=== PATIENT | female | born 1970 | race Caucasian/White ===

== ENCOUNTER → 2017-09-23 11:26 | Outpatient (CLI) | payer OTHER, SELFPAY ==
--- NOTE | 2017-09-23 11:31 | RAD_ITS ---
STUDY: X-RAY CHEST REASON FOR EXAM: Female, 47 years old. Hemoptysis TECHNIQUE: Frontal and lateral views of the chest were obtained. COMPARISON: None. FINDINGS: The lungs are adequately aerated. There are no focal airspace opacities. There is no demonstrated pleural abnormality. The cardiac silhouette is normal in size. The mediastinum and hilar regions are unremarkable. Normal visualized pulmonary arteries. Normal visualized aortic arch and descending thoracic aorta. The thoracic spine is unremarkable. The visualized ribs, clavicles, and shoulders are unremarkable. There is no demonstrated abnormality of the visualized upper abdomen. RAD/Chest PA and Lateral IMPRESSION: There is no evidence of focal consolidation or pleural effusion. There are no acute cardiopulmonary abnormalities. Electronically Signed: Marianela Valencia MD at 11:14 EDT Tel Direct: [phone], Service support ,
== END ==
PROVIDERS: Family Provider Family Medicine; PCP Family Medicine; Visit Provider Family Medicine
DX: Z00.00 Encounter for general adult medical examination without abnormal findings (principal); R04.2 Hemoptysis
CPT/HCPCS: 71046

== ENCOUNTER → 2017-10-08 09:00 | Outpatient (CLI) | payer OTHER, SELFPAY ==
[2017-10-12 13:40] LABS: Free T3 3.4 pg/mL (2.18-3.98)
== END ==
PROVIDERS: Visit Provider Internal Medicine Endocrinology, Diabetes & Metabolism
DX: E03.9 Hypothyroidism, unspecified (principal); E55.9 Vitamin D deficiency, unspecified
CPT/HCPCS: 84481

== ENCOUNTER → 2017-11-04 07:47 | Outpatient (CLI) | payer OTHER, SELFPAY ==
--- NOTE | 2017-11-04 07:49 | BI_ITS ---
MAMMOGRAPHY - BILATERAL SCREENING REASON FOR EXAM: Female, 47 years old. Routine annual screening examination. PERTINENT HISTORY: Mother with breast cancer. TECHNIQUE: Digital bilateral breast jami (3D mammographic acquisition) in the CC and MLO projections. 2-D mediolateral oblique (MLO) and craniocaudad (CC) views of both breasts were obtained. CAD: Full Field Digital Mammography with Computer Added Detection was performed. COMPARISON: Comparison is made with prior study dated August 13, 2016. FINDINGS: Breast Composition: The breasts are heterogeneously dense, which may obscure small masses. There are no dominant masses or suspicious calcifications. No other significant abnormalities are identified. There has been no significant change since the prior study. BI/SCREENING MAMM (CAD), BILAT IMPRESSION: Stable bilateral screening mammogram. Yearly follow-up mammogram recommended. (A) ASSESSMENT CATEGORY: BIRADS Category 1: Negative. A letter regarding these results will be sent to the patient by the facility within 30 days. Approximately 10% of breast cancers are not detected by mammography. A normal mammogram should not delay biopsy of a clinically suspicious abnormality. [id number] Electronically Signed: Kingsley Brown MD at 10:54 EDT Tel [phone], Service support ,
== END ==
PROVIDERS: Family Provider Family Medicine; PCP Family Medicine; Visit Provider Family Medicine
DX: Z12.31 Encounter for screening mammogram for malignant neoplasm of breast (principal)
CPT/HCPCS: 77063; 77067

== ENCOUNTER 2017-11-23 07:43 | Day surgery (SDC) | payer OTHER, SELFPAY ==
[2017-11-23] VITALS (7 sets, daily range): BP systolic 82–126; BP diastolic 46–75; PULSE 48–74; RESP 16–18; TEMP 36.2–36.9; O2SAT 96–100; BMI 26.7
--- NOTE | 2017-11-23 | IMM_PTH ---
PATIENT: RADHA NOLAN LOC: EN U#:[id number] AGE/SX: 47/F ROOM: RE11/23/[address]: Dr. Chiquita Quevedo MD : 1970 BED: DIS: 11/23/2017 SPEC #: [id number] RECD: 11/24/17 12:14 STATUS: EBEN REQ #: [id number] MUNDO: 11/23/17 00:[address]: Chiquita Quevedo DEPT: IMMUNOHISTOCHEMISTRY RECD BY: Danette Coleman ENTERED: 11/24/17 12:15 SP TYPE: IMMUNO OTHR DR: Dr. Toni Delacruz MD Tissues: A - Stomach, NOS Procedures: H Pylori (initial) PHYSICIAN & INSTITUTION [place] [id number] SPECIMEN INFORMATION: Tissue Source: A ? Gastric antrum biopsy Clinical Info: Chronic mouth sores; constipation Specimen Number: [id number] CPT code: 28691 METHODOLOGY: Deparaffinized sections of prefer/formalin-fixed tissue or PAP/DQ stained slides are incubated with monoclonal/polyclonal antibodies/oligonucleotide probes. Localization is made via biotin free immunoperoxidase method. Appropriate controls are performed and reacted as expected. Results on target cell population are indicated in the following table: RESULTS: ANTIBODY / CLONE RESULT Block A H Pylori (polyclonal) negative These tests were developed and their performance characteristics determined by [facility]. They may not have been cleared or approved by the U.S. Food and Drug Administration. The FDA has determined that such clearance or approval is not necessary. INTERPRETATION: A. Gastric antrum, biopsy: Negative for Helicobacter pylori organisms. SJ:carmina 11/24/17
[2017-11-23 08:14] LABS: Internal QC Validated? YES +Cl - CLEAR BKGD; Pregnancy, Urine Negative Negative
--- NOTE | 2017-11-23 08:43 | EGD_PTH ---
PATIENT: RADHA NOLAN LOC: EN U#:[id number] AGE/SX: 47/F ROOM: RE11/23/[address]: Dr. Chiquita Quevedo MD : 1970 BED: DIS: 11/23/2017 SPEC #: [id number] RECD: 11/23/17 11:05 STATUS: EBEN KALEB #: [id number] MUNDO: 11/23/17 08:[address]: Chiquita Quevedo DEPT: SURGICAL PATHOLOGY RECD BY: Pollo Vickers ENTERED: 11/23/17 11:41 SP TYPE: EGD BIOPSY OTHR DR: Dr. Toni Delacruz MD Tissues: A - Gastric mucous membrane B - Gastric fundus C - Gastric mucous membrane D - Esophageal mucous membrane E - Sigmoid colon biopsy Procedures: Special Stain Group II Special Stain Group I Surgery Specimen Level IV GMS Stain (control) Alcian Blue/PAS (control) HEADER OPERATION: EGD with biopsy; colonoscopy with polypectomy PRE-OP DIAGNOSIS: Chronic mouth sores; constipation TISSUE SUBMITTED: A ? Biopsy gastric antrum, B ? Biopsy fundic polyp, C ? Biopsy GE junction, D ? Biopsy mid esophagus, E ? Polyp 25 cm distal sigmoid MICROSCOPIC DIAGNOSIS A. Gastric antrum, biopsy: Mild gastritis. Focal intestinal metaplasia. See microscopic description and comment. B. Fundic polyp, biopsy: Fundic gland polyp. C. GE junction, biopsy: Fragment of gastroesophageal mucosa with chronic inflammation. Intestinal metaplasia (goblet cell metaplasia) is not identified. See comment. D. Mid esophagus, biopsy: Fragment of squamous mucosa with focal ulceration and associated acute and chronic inflammation. A minute lymphoid aggregate, favor benign. Special stain for fungi is negative for organisms; matched control is appropriate. E. Polyp at 25 cm, distal sigmoid, polypectomy: Tubulovillous adenoma with focal high-grade dysplasia, completely excised. See comment. SJ:rg 11/24/17 COMMENT A. The results of immunohistochemistry for Helicobacter pylori will be reported separately ([id number]). A & C. Alcian blue/PAS stain with matched control is used in the evaluation of the specimen. E. High grade dysplasia is noted at the luminal surface of the polyp. The pedicle is free of adenomatous changes. MICROSCOPIC DESCRIPTION Slides are reviewed. A. The specimen shows fragments of gastric mucosa with chronic inflammatory cell infiltrates in the lamina propria consisting of lymphocytes and plasma cells, consistent with mild chronic gastritis. Focal intestinal metaplasia is also noted. GROSS DESCRIPTION A - Received in fixative is one container labeled with the patient's name and designated gastric antrum. The specimen consists of one irregular fragment of light machuca soft tissue that measures 0.3 x 0.2 x 0.1 cm. The specimen is totally submitted in one cassette. B - Received in fixative is one container labeled with the patient's name and designated fundic polyp. The specimen consists of one irregular fragment of light machuca soft tissue that measures 0.3 x 0.2 x 0.1 cm. The specimen is totally submitted in one cassette. C - Received in fixative is one container labeled with the patient's name and designated GE junction. The specimen consists of one irregular fragment of light machuca soft tissue that measures 0.3 x 0.3 x 0.1 cm. The specimen is totally submitted in one cassette. D - Received in fixative is one container labeled with the patient's name and designated mid esophagus. The specimen consists of one irregular fragment of light machuca soft tissue that measures 0.8 x 0.3 x 0.1 cm. The specimen is totally submitted in one cassette. E - Received in fixative is one container labeled with the patient's name and designated polyp at 25 cm distal sigmoid. The specimen consists of a pedunculated polyp measuring 1 x 0.5 x 0.5 cm. The pedicle measures 0.6 cm in length and 0.6 cm in diameter. The base of the polyp is inked black. The polyp is bisected and submitted entirely in one cassette. / SJ:rg 11/23/17 TC:1 CPT: 88906 x5, 93383 x2, 22591
--- NOTE | 2017-11-23 09:55 | PCM.OPRPT ---
Report of Operation Date of Procedure: 11/23/17 Pre-Operative Diagnosis: Chronic mouth sores, constipation Post-Operative Diagnosis: Small esophageal ulcer, GERD/mild reflux, gastric fundic polyps, distal sigmoid polyp at 25 cm Surgery/Procedure Performed:: EGD with biopsy, colonoscopy with snare polypectomy, injection of Nazia ink Type of Anesthesia:: MAC Anesthesiologist: Oscar Malhotra Specimen's removed: 1. Antral biopsy, 2. Fundic polyp, 3. GE junction, 4. Middle esophagus ulcer, 5. Distal sigmoid polyp at 25 cm Estimated Blood Loss (mL): Minimal Description of Procedure: Procedure: EGD with biopsy After obtaining informed consent, the endoscope was passed under direct visualization. Throughout the procedure, patient's blood pressure, pulse, oxygen saturations were monitored continuously by anesthesia. The endoscope was introduced through the mouth and advanced to the 2nd part of the duodenum. The upper GI endoscopy was accomplished without difficulty. Patient tolerated procedure well. Findings: Mild erythematous mucosa found gastric antrum, fundic gland polyps, mild mucosal change at the GE junction-these were all biopsied with cold forceps biopsies. In the middle esophagus there was a small ulcer which was also biopsied with the cold forceps biopsy The duodenum was normal. Impression: 1. GERD/mild gastritis, fundic polyps. Biopsied 2. Small middle esophagus ulcer. Biopsied. 3. Normal examined duodenum Recommendations: Await biopsies Omeprazole 40 mg p.o. daily take 1 hour after taking levothyroxine or take at bedtime. Procedure: Colonoscopy with snare polypectomy After reviewing the risks benefits, the patient was deemed in satisfactory condition to undergo procedure. After obtaining informed consent, the scope was passed under direct visualization. Throughout the procedure, the patient's blood pressure pulse and position saturations were monitored continuously anesthesia. The colonoscope was introduced through the anus and advanced to the cecum, identified by the appendiceal orifice, IC valve and transillumination. The colonoscopy was performed without difficulty. The patient tolerated procedure well. Quality of bowel prep was good. Findings: The perianal and digital rectal exam were normal. There is medium size polyp on a long stalk at about 25 cm in the distal sigmoid this was removed with hot snare. The polyp measured about 1 cm in length including the stalk and 6 mm in width. The area was marked in 3 locations with Nazia ink. Otherwise the colon (entire examined portion) appeared normal. Retroflexed view of the distal rectum and anal verge was normal and showed no anal or rectal abnormalities Impression: 1. Distal sigmoid polyp removed with snare polypectomy 2. The distal rectal and anal verge were normal on retroflexed view. Recommendations: Await biopsy results Repeat colonoscopy in 1-3 years for screening purposes depending on biopsy results - Complications none
== END 2017-11-23 10:47 | disposition home or self-care (01) ==
LOC: EN 07:44 → AC 07:45
PROVIDERS: Anesthesiology; Family Provider Family Medicine; PCP Family Medicine; Visit Provider Surgery
PROC: 0DJD8ZZ Inspection of Lower Intestinal Tract, Via Natural or Artificial Opening Endoscopic (ICD-10-PCS; CPT 45378; principal; 2017-11-23 08:55)
DX: K22.10 Ulcer of esophagus without bleeding (principal); K21.9 Gastro-esophageal reflux disease without esophagitis; K29.50 Unspecified chronic gastritis without bleeding; K44.9 Diaphragmatic hernia without obstruction or gangrene; D12.5 Benign neoplasm of sigmoid colon; K62.5 Hemorrhage of anus and rectum; K13.79 Other lesions of oral mucosa; K59.00 Constipation, unspecified; I10 Essential (primary) hypertension; E03.9 Hypothyroidism, unspecified; Z79.899 Other long term (current) drug therapy
CPT/HCPCS: 43239; 45381; 45385; 81025; 88305; 88312; 88313; 88342; J7120; A4216; A4648

== ENCOUNTER → 2018-12-16 07:15 | Outpatient (CLI) | payer OTHER, SELFPAY ==
--- NOTE | 2018-12-16 07:19 | BI_ITS ---
MAMMOGRAPHY - BILATERAL SCREENING REASON FOR EXAM: Female, 48 years old. Routine annual screening examination. PERTINENT HISTORY: Mother with breast cancer. Comparison is made with prior study dated November 04, 2017 and August 13, 2016. TECHNIQUE: Digital bilateral breast lizbeth (3D mammographic acquisition) in the CC and MLO projections. 2-D mediolateral oblique (MLO) and craniocaudad (CC) views of both breasts were obtained. CAD: Full Field Digital Mammography with Computer Added Detection was performed. COMPARISON: Comparison is made with prior study dated November 04, 2017 and August 13, 2016. FINDINGS: Breast Composition: The breasts are heterogeneously dense, which may obscure small masses. Focal area of architectural distortion seen in the axillary aspect of the left breast on the mediolateral oblique view. This is not clearly seen on the craniocaudad view. The patient will be recalled for additional views including 90 degree lateral and compression spot views. Stable small bilateral axillary lymph nodes. No other significant abnormalities are identified. BI/SCREEN MAMM (CAD) W/LIZBETH BILAT IMPRESSION: Focal area of architectural distortion in the left breast as described. The patient will be recalled for additional views of the left breast. Recall Side: Left Breast ASSESSMENT CATEGORY: BIRADS Category 0: Incomplete. Need additional imaging evaluation. A letter regarding these results will be sent to the patient by the facility within 30 days. Approximately 10% of breast cancers are not detected by mammography. A normal mammogram should not delay biopsy of a clinically suspicious abnormality. [id number] Electronically Signed: iKngsley Brown, at 9:04 EDT , Service support ,
== END ==
PROVIDERS: Family Provider Family Medicine; PCP Family Medicine; Referring Provider Family Medicine; Visit Provider Family Medicine
DX: Z00.00 Encounter for general adult medical examination without abnormal findings (principal); Z12.31 Encounter for screening mammogram for malignant neoplasm of breast
CPT/HCPCS: 77063; 77067

== ENCOUNTER → 2018-12-21 | Outpatient (CLI) | payer OTHER, SELFPAY ==
--- NOTE | 2018-12-21 14:18 | BI_ITS ---
MAMMOGRAPHY - UNILATERAL DIAGNOSTIC: LEFT BREAST REASON FOR EXAM: Female, 48 years old. Abnormal screening mammogram with a focal area of architectural distortion in the axillary aspect of the left breast. PERTINENT HISTORY: Mother with breast cancer. TECHNIQUE: 90 degree lateral as well as compression spot views of the left breast were obtained. CAD: Full Field Digital Mammography with Computer Added Detection was performed. COMPARISON: Comparison is made with prior examination dated December 16, 2018 and November 04, 2017. FINDINGS: Breast Composition: The breasts are heterogeneously dense, which may obscure small masses. The focal area of architectural distortion deep in the axillary region of the breast persists. Correlation with ultrasound is recommended. No other significant abnormalities are identified. BI/DIAG MAMM W/CAD, UNILAT IMPRESSION: Persistent architectural distortion in the axillary region of the left breast as described. Comparison with ultrasound is recommended. ASSESSMENT CATEGORY: BIRADS Category 0: Incomplete. Need additional imaging evaluation. A letter regarding these results will be sent to the patient by the facility within 30 days. Approximately 10% of breast cancers are not detected by mammography. A normal mammogram should not delay biopsy of a clinically suspicious abnormality. Electronically Signed: Kingsley Brown, at 8:16 EDT , Service support ,
--- NOTE | 2018-12-21 14:57 | US_ITS ---
STUDY: ULTRASOUND BREAST - LEFT REASON FOR EXAM: Female, 48 years old. Architectural distortion in the axillary region of the breast. TECHNIQUE: Axial and longitudinal images of the LEFT breast were performed with a high resolution ultrasound transducer. COMPARISON: Comparison is made with prior mammogram done earlier today as well as December 16, 2018. FINDINGS: LEFT Breast: The mammographic abnormality corresponds to a 1.6 cm x 0.9 cm x 0.6 cm lymph node. There is also evidence of dilated ducts at the 2:00 position the breast at 5 cm from the nipple. Routine mammographic follow-up is recommended. US/Breast Limited Unilateral IMPRESSION: 1.6 cm x 0.6 cm x 0.9 cm lymph node. Routine mammographic follow-up is recommended. ASSESSMENT CATEGORY: BIRADS Category 2: Benign. A letter regarding these results will be sent to the patient by the facility within 30 days. Electronically Signed: Kingsley Brown, at 8:18 EDT , Service support ,
== END | disposition home or self-care (01) ==
LOC: OPBI 14:16
PROVIDERS: Family Provider Family Medicine; PCP Family Medicine; Referring Provider Family Medicine; Visit Provider Family Medicine
DX: R92.8 Other abnormal and inconclusive findings on diagnostic imaging of breast (principal)
CPT/HCPCS: 76642; 77065

== ENCOUNTER 2019-03-28 10:05 | Day surgery (SDC) | payer OTHER, SELFPAY ==
[2019-03-28] VITALS (7 sets, daily range): BP systolic 93–129; BP diastolic 52–89; PULSE 62–73; RESP 16–18; TEMP 36.3–36.7; O2SAT 98–100; BMI 27.3
[2019-03-28 10:22] LABS: Internal QC Validated? YES +Cl - CLEAR BKGD; Pregnancy, Urine Negative Negative
[2019-03-28] MEDS: Lactated Ringers 1,000 ML 100 ML IV (10:36)
--- NOTE | 2019-03-28 10:45 | H&P.OPEN ---
History of Present Illness Date of Admission: 03/28/19 The patient is a 48 year old F presented for screening colonoscopy due to history of tubular adenoma with high-grade dysplasia at the tip completely excised last year in 2018 in the sigmoid colon. Patient states she has bowel movements most daily or at least every other day, denies any abdominal pain or reflux symptoms. She does still get occasional mouth sores unsure of the source she is questioning whether it may be due to something that she eats. Past Medical/Surgical History - Planned Operation Planned Operative Procedure/s: colonoscopy Date of Operative Procedure: 03/28/19 Permit Signed: No S.O.S: No Is This Patient Having a Total Joint: No - Previous Hospitalizations/Surgeries HX Hospitalizations: No HX of Surgeries: egd,colonoscopy Any Problems With Anesthesia: No You/Your Family Experience Fever (Hyperthermia) With Anes: No Cholinesterase deficiency: No - Cardiovascular Hx Chest Pain within Last 2 months: No Hx of Irregular Heartbeat and/or Afib: No Hx Heart Attack: No Hx Congestive Heart Failure: No Hx Rheumatic Fever: No Hx Hypertension: Yes - no longer on medication Hx Internal Defibrillator: No Hx Pacemaker: No Hx Cardiac Catheterization: No Hx Cardiac Surgery/Stents/Etc.: No Hx Stress Test: No HX Edema: No Hx Pain in Legs when Walking/Leg Cramps: No - Respiratory Chronic Cough: No HX of Shortness of Breath: No Hoarseness: No Hx Chronic Obstructive Pulmonary Disease (COPD): No Hx Asthma: No Hx Emphysema: No Hx Sleep Apnea: No Hx Oxygen Use at Home: No Hx Respiratory Tract Infection/Cold (presently): No Do You Snore Loudly (louder than talking or can be heard): No Do You Often Feel Tired/ Fatigued/ Sleepy Dring Daytime?: No Has Anyone Observed You Stop Breathing During Sleep?: No Result (for STOP score): Negative Hx Smoking: No Smoking Status: Never smoker - Gastrointestinal Hx Gastroesophageal Reflux: Yes Controlled With Meds: No - no longer take medication Hx Gastrointestinal Disorders: No Hx Gastrointestinal Bleed: No Hx Ulcer: No Hx Hiatal Hernia: No Difficulty Chewing/Swallowing: No Recent Onset of Swallowing Problems: No Special diet followed at home: No Hx Unplanned Weight Loss of 20#: No HX Unplanned Weight Gain of 20#: No - Neurological Hx Seizures: No HX Syncope/Blackout Spells/Unconsciousness: No Hx CVA/Stroke: No Hx Transient Ischemic Attacks (TIA): No Hx Multiple Sclerosis: No Hx Parkinson's Disease: No Hx Head/Neck Injury: No Hx Headaches: No Hx Back Injury/Pain: No Recent Onset of Speech Difficulty: No Restless Legs: No Does patient have nerve stimulator: No - Blood Disorder Hx Leukemia: No Bleeding Tendencies: No Hx Deep Vein Thrombosis: No Hx High Cholesterol: No Blood Transmitted Disease: No Hx Hepatitis: No Hx Cirrhosis: No Hx Anemia: No Hx Blood Disorders: No - Reproduction : No Is Patient Lactating: No Hx Hysterectomy: No Hx Tubal Ligation: No Are You Post Menopause: No - Genitourinary Hx Renal Disease: No - Musculoskeletal Hx Arthritis: No Hx Rheumatoid Arthritis: No Hx Gout: No Recent Onset of an Orthopedic Problem: No - Endocrine Hx Diabetes: No Thyroid Disease: Yes - on medication Hx Steroid Therapy: No - Psycho/Social Hx Substance Use: No Hx Alcohol Use: No Hx Anxiety: No Hx Depression: No Mental Illness: No Hx Dementia: No - Miscellaneous Hx Cancer: No Recent Exposure to Contagious Disease: No Active MRSA: No Hx of C-Diff: No Any Loose Teeth: No Allergies No Known Allergies Allergy (Verified 03/28/19 10:23) - Discharge Is Pt Admitted From a Long Term, or a Skilled Nursing: No Who Could Help: family After D/C, Where Do you Plan to Go: Return Home - Physical Exam General: Alert, Oriented x3, Cooperative, No apparent distress HEENT: Atraumatic Lungs: Normal air movement Cardiovascular: Regular rate Abdomen: Soft, Non Tender, Non-Distended Extremities: No clubbing, No cyanosis, No edema Vital Signs Temp Pulse Resp BP Pulse Ox 98.1 F 64 16 129/89 H 98 03/28/19 10:24 03/28/19 10:24 03/28/19 10:24 03/28/19 10:24 03/28/19 10:24 Oxygen Delivery Method Room Air Weight: 185 lb 6.54 oz Body Mass Index (BMI) 27.3 Laboratory Tests Past 24 Hrs 03/28/19 10:18 Urine Test Negative Assessment/Plan 48-year-old female history of tubulovillous adenoma with high-grade dysplasia completely excised, high-grade dysplasia only at the tip of the polyp with a long stalk in the sigmoid colon Surgery Risks - Colonoscopy I discussed with the patient the risks of the procedure: Yes Risks Include but are not Limited To: Risks include but are not limited to: Bleeding, perforation requiring further surgery, inability to complete colonoscopy requiring barium enema. Patient no further questions this time.
--- NOTE | 2019-03-28 11:34 | OP.ENDO_ITS ---
03/28/2019 Rodrick Delacruz [address] [place] [address] Re : Colonoscopy procedure for Mame Latham Dear Dr. Delacruz This procedure was performed on Thursday, March 28, 2019. My impressions and recommendations are as follows: Impressions : - Hemorrhoids found on perianal exam. - The entire examined colon is normal on direct and retroflexion views. - No specimens collected. - Sigmoid 25cm, area of previous TVA with high grade dysplasia at the tip, no polyps or mass appreciated, visualized previous tattoo. Recommendations : - Discharge patient to home. - Resume regular diet. - Continue present medications. - Repeat colonoscopy in 3 years for surveillance. My findings are described in the full procedure note, which is enclosed. If I can be of further assistance, please feel free to contact me at Doctor phone number(s): , Work: . Sincerely, MD Chiquita Wang MD 03/28/2019 11:33:53 AM This report has been signed electronically.
== END 2019-03-28 12:31 | disposition home or self-care (01) ==
LOC: EN 10:06 → AC 10:07
PROVIDERS: Anesthesiology; Family Provider Family Medicine; PCP Family Medicine; Referring Provider Family Medicine; Visit Provider Surgery
PROC: 0DJD8ZZ Inspection of Lower Intestinal Tract, Via Natural or Artificial Opening Endoscopic (ICD-10-PCS; CPT 45378; principal; 2019-03-28 11:10)
DX: Z12.11 Encounter for screening for malignant neoplasm of colon (principal); K64.9 Unspecified hemorrhoids; Z86.010 Personal history of colon polyps; E06.9 Thyroiditis, unspecified
CPT/HCPCS: 45378; 81025; J7120; J2405

== ENCOUNTER → 2019-09-26 | Outpatient (CLI) | payer OTHER, SELFPAY ==
[2019-03-28 10:24] VITALS: BMI 27.3
[2019-09-28 14:42] LABS: HPV Reflexed? NOT INDICATED
== END | disposition home or self-care (01) ==
PROVIDERS: PCP Family Medicine; Referring Provider Family Medicine; Visit Provider Family Medicine
DX: Z01.419 Encounter for gynecological examination (general) (routine) without abnormal findings (principal)
CPT/HCPCS: 88175; G0145

== ENCOUNTER → 2019-12-27 07:13 | Outpatient (CLI) | payer OTHER, SELFPAY ==
[2019-03-28 10:24] VITALS: BMI 27.3
--- NOTE | 2019-12-27 07:15 | BI_ITS ---
MAMMOGRAPHY - BILATERAL SCREENING 3-D TOMOSYNTHESIS REASON FOR EXAM: Female, 49 years old. Routine screening PERTINENT HISTORY: BILAT SCREENING - FAM HX OF MOTHER @ AGE LATE 60''S - NO PREV GORAN G''S - LT U/S DONE 12/21/18 = LYMPH NODE. TECHNIQUE: 2-D mammograms and 3-D Tomosynthesis of the breast (s) were performed. CAD was performed. COMPARISON: 12/21/2018 FINDINGS: The breast composition is heterogeneously dense that can obscure small breast masses. Scattered benign calcifications are seen. No dense spiculated masses or suspicious microcalcifications are identified. No architectural distortion is identified. There is no skin thickening or retraction. There has been no significant change since the prior study. BI/SCREEN MAMM (CAD) W/LIZBETH BILAT IMPRESSION: No mammographic signs of malignancy. Routine yearly mammograms recommended. ASSESSMENT CATEGORY: BIRADS Category 2: Benign. A letter regarding these results will be sent to the patient by the facility within 30 days. FOLLOW UP RECOMMENDATION: Yearly follow up mammogram recommended. (A) Approximately 10% of breast cancers are not detected by mammography. A normal mammogram should not delay biopsy of a clinically suspicious abnormality. Electronically Signed: Moragn Husain MD at 9:20 EDT , Service support ,
== END ==
PROVIDERS: PCP Family Medicine; Referring Provider Family Medicine; Visit Provider Family Medicine
DX: Z12.31 Encounter for screening mammogram for malignant neoplasm of breast (principal); Z80.3 Family history of malignant neoplasm of breast
CPT/HCPCS: 77063; 77067

== ENCOUNTER → 2021-09-28 | Outpatient (CLI) | payer OTHER, SELFPAY ==
[2021-09-28 10:54] LABS: BUN 19 mg/dL (7-18); Creatinine, Serum 1.07 mg/dL (0.55-1.02); EST Glomerular Filtration Rate 58 mL/min (>60); Glucose 90 mg/dL (74-106)
[2021-09-28 10:55] LABS: Anion Gap 6 (5-15); BUN/Creat Ratio 17.8 RATIO (10-20); Calcium,Total 8.7 mg/dL (8.5-10.1); Chloride 103 mmol/L (98-107); Cholesterol 190 mg/dL (200); Est Glom Filt Rate - Afr Amer 70 mL/min (>60); High Density Lipoprotein 59 mg/dL; Potassium 4.5 mmol/L (3.5-5.1); Sodium Level 136 mmol/L (136-145); T4 Free Direct 1.07 ng/dL (0.76-1.46); Thyroid Stim Hormone (TSH) 0.88 uIU/mL (0.358-3.74); Triglycerides 99 mg/dL; Very Low Density Lipoprotein 20 mg/dL (5-40)
== END | disposition home or self-care (01) ==
LOC: LAB 09:40
PROVIDERS: PCP Family Medicine; Referring Provider Family Medicine; Visit Provider Family Medicine
DX: Z13.1 Encounter for screening for diabetes mellitus (principal); Z13.220 Encounter for screening for lipoid disorders; E03.9 Hypothyroidism, unspecified
CPT/HCPCS: 36415; 80048; 80061; 84439; 84443

== ENCOUNTER → 2021-10-11 | Outpatient (CLI) | payer OTHER, SELFPAY ==
[2021-10-20 20:08] LABS: Beef <0.10 kU/L (Class 0); Corn <0.10 kU/L (Class 0); Egg, Whole <0.10 kU/L (Class 0); Milk (Cow) <0.10 kU/L (Class 0); Peanut <0.10 kU/L (Class 0); Pork <0.10 kU/L (Class 0); Soybean <0.10 kU/L (Class 0); Wheat <0.10 kU/L (Class 0)
[2021-10-21 13:36] LABS: Chocolate <0.10 kU/L (Class 0)
== END | disposition home or self-care (01) ==
PROVIDERS: PCP Family Medicine; Visit Provider Family Medicine
DX: K12.1 Other forms of stomatitis (principal)
CPT/HCPCS: 36415; 86003; 86005

== ENCOUNTER → 2024-09-27 | Outpatient (CLI) | payer OTHER, SELFPAY ==
--- NOTE | 2024-09-27 07:30 | BI_ITS ---
EXAM: SCRN MAMM (CAD)W/LIZBETH BILAT DATE: 09/27/2024 CLINICAL HISTORY: F, Age 54 y/o , SCREEN FOR BREAST CANCER Mother with breast cancer. BREAST CANCER RISK ASSESSMENT: Not assessed. TECHNIQUE: Bilateral screening digital breast tomosynthesis with 2D and 3D images. Computer aided detection. COMPARISON: Prior exam(s) dated outside examination dated October 14, 2022.. FINDINGS: TISSUE DENSITY: The breast tissue is heterogenously dense, which may obscure small masses. Bilateral Breast Mammographic Findings: Persistent 1.6 cm x 1.6 cm well-defined nodule in the deep upper lateral aspect of the left breast. Correlation with ultrasound is recommended. Stable bilateral fat containing axillary lymph nodes. BI/SCRN MAMM (CAD)W/LIZBETH BILAT IMPRESSION: OVERALL FINAL ASSESSMENT: BIRADS 0 Incomplete: Need additional imaging evaluati on and/or prior mammograms for comparison. RECOMMENDATION: Incomplete: Need additional imaging evaluation. A letter with findings and recommendations will be mailed to the patient. Reading Location: [place] [address]
== END | disposition home or self-care (01) ==
PROVIDERS: PCP Family Medicine; Referring Provider Nurse Practitioner Family; Visit Provider Nurse Practitioner Family
DX: Z12.31 Encounter for screening mammogram for malignant neoplasm of breast (principal)
CPT/HCPCS: 77063; 77067

== ENCOUNTER → 2024-10-04 | Outpatient (CLI) | payer OTHER, SELFPAY ==
--- NOTE | 2024-10-04 12:47 | US_ITS ---
PROCEDURE: BREAST LIMITED UNILATERAL 10/04/2024 REASON FOR EXAM: 54-year-old female presents for follow-up of the left breast finding visualized on the mammogram of 09/27/2024. TECHNIQUE: Targeted left breast ultrasound. COMPARISON: Ultrasound 05/18/2023, 10/20/2022; mammogram 10/14/2022 and 12/27/2019. FINDINGS: Left breast ultrasound was targeted to the upper-outer quadrant. There is a cyst in the left breast at 2 o'clock 7 cm from the nipple measuring 2.3 x 1.8 x 0.4 cm. This is slightly decreased in size when compared to prior examination of 05/18/2023. This correlates to the mammographic finding. Otherwise, there are no suspicious sonographic findings in the upper-outer left breast. US/Breast Limited Unilateral IMPRESSION: Impression: Left breast cyst at 2 o'clock is benign and has slightly decreased in size when compared to prior examinations dating back to 05/18/2023 Birads: BI-RADS 2: BENIGN. RECOMMEND ANNUAL MAMMOGRAPHIC SCREENING. Reading Location: [id number]
== END | disposition home or self-care (01) ==
PROVIDERS: PCP Family Medicine; Referring Provider Nurse Practitioner Family; Visit Provider Nurse Practitioner Family
DX: N63.20 Unspecified lump in the left breast, unspecified quadrant (principal)
CPT/HCPCS: 76642

== ENCOUNTER → 2024-11-02 | Outpatient (CLI) | payer OTHER, SELFPAY ==
[2024-11-02 18:05] LABS: Estradiol 74.2 pg/mL; Follicle Stimulating Hormone 25.6 mIU/mL; Free T3 3.3 pg/mL (2.18-3.98); Thyroid Stim Hormone (TSH) 0.735 uIU/mL (0.300-4.200)
== END | disposition home or self-care (01) ==
LOC: BWCLAB 15:48
PROVIDERS: PCP Family Medicine; Referring Provider Nurse Practitioner Family; Visit Provider Nurse Practitioner Family
DX: E03.9 Hypothyroidism, unspecified (principal); N95.1 Menopausal and female climacteric states
CPT/HCPCS: 36415; 82670; 83001; 84439; 84443; 84481